=== PATIENT | male | born 1985 | race Two or more races ===

== ENCOUNTER 2025-01-15 10:24 | Emergency (ER) | payer MEDICAID, OTHER ==
[~2025-01-15] VITALS: Ht 188 cm; Wt 109.0 kg
[2025-01-15 10:30] VITALS: TEMP 97.9
[2025-01-15 12:00] VITALS: BP 128/86; PULSE 72; RESP 16; O2SAT 99
[2025-01-15] MEDS ORDERED: PRED-554 PO (12:56)
[2025-01-15] MEDS ORDERED: DIPH25CA85 PO (12:57)
== END 2025-01-15 13:29 | disposition home or self-care (01) ==
LOC: EMS 10:31
DX: T78.40XA Allergy, unspecified, initial encounter (principal); F17.210 Nicotine dependence, cigarettes, uncomplicated; Z79.52 Long term (current) use of systemic steroids; X58.XXXA Exposure to other specified factors, initial encounter
CPT/HCPCS: 99283; J7512

== ENCOUNTER 2025-04-29 15:23 | Inpatient (IN) | payer OTHER ==
[~2025-04-29] VITALS: Ht 175.3 cm; Wt 79.5 kg
[~2025-04-29 15:23] MED LIST: DIPH25CA85 PO; PRED-554 PO
[2025-04-29] MEDS ORDERED: MAGNESIUM HYDROXIDE SUSPENSION 30 ML UDCUP PO PRN (16:15)
[2025-04-29 16:25] LABS: PLATELET COUNT (AUTO) 316 K/uL (150-450); RED BLOOD CELL COUNT(AUTO) 5.15 MIL/uL (4.50-5.90); RED CELL DISTRIBUTION WIDTH 14.6 % (11.5-14.5); WHITE BLOOD COUNT (AUTO) 6.1 K/uL (4.5-11.0)
[2025-04-29 16:29] LABS: CALCIUM, TOTAL 8.9 mg/dL (8.8-10.5); CREATININE 0.63 mg/dL (0.60-1.30); GLOMERULAR FILTR. RATE CALC > 60 mL/min (>60); GLUCOSE,RANDOM 95 mg/dL (70-110); SODIUM SERUM 137 mmol/L (136-145); UREA NITROGEN, BLOOD 14 mg/dL (7-18)
[2025-04-29] MEDS: ONDANSETRON HCL 4 MG/2 ML VIAL IVP PRN (17:44)
[2025-04-29] MEDS: SODIUM CHLORIDE 0.9% 1,000 ML IV ONE (17:44)
[2025-04-29] MEDS: LORazepam 2 MG/ML VIAL IVP PRN (17:45)
[2025-04-29] MEDS: ACETAMINOPHEN 325 MG TABLET PO PRN (17:52)
[2025-04-29 20:30] VITALS: BP 128/88; PULSE 69; RESP 18; TEMP 97.9; O2SAT 97
[2025-04-30] MEDS: ZOLPIDEM TARTRATE 5 MG TABLET PO PRN (00:31)
[2025-04-30 04:31] VITALS: BP 123/77; PULSE 64; RESP 18; TEMP 98.3; O2SAT 98
[2025-04-30 05:50] VITALS: BP 138/77; PULSE 77; RESP 18; TEMP 97.9; O2SAT 98
[2025-04-30] MEDS: FAMOTIDINE 20 MG TABLET PO SCH (08:14)
[2025-04-30] MEDS ORDERED: LORazepam 2 MG/ML VIAL IVP PRN (08:15)
[2025-04-30 08:41] VITALS: BP 114/76; PULSE 71; RESP 18; TEMP 97.7; O2SAT 100
[2025-04-30] MEDS: HYDROCORTISONE 0.5% 30 GM CREAM TP SCH (10:41)
[2025-04-30] MEDS: CLOTRIMAZOLE 1% 15 GM CREAM TP SCH (10:41)
[2025-04-30] MEDS ORDERED: DEXTROSE 50%-WATER 25 GM/50 ML SYRINGE IVP PRN (13:45)
[2025-04-30] MEDS ORDERED: INSULIN LISPRO 100 UNITS/ML SQ PRN (13:45)
[2025-04-30 17:25] LABS: GLUCOMETER DEV NAME(LOC) 6N.1C; GLUCOSE,POINT OF CARE 93 MG/DL (70-110)
[2025-04-30 21:20] VITALS: BP 118/85; PULSE 70; RESP 18; TEMP 98.1; O2SAT 98
[2025-04-30 23:46] LABS: GLUCOMETER DEV NAME(LOC) 6N.1C; GLUCOSE,POINT OF CARE 137 MG/DL (70-110)
[2025-05-01 06:13] VITALS: BP 94/62; PULSE 70; RESP 18; TEMP 97.7; O2SAT 98
[2025-05-01 08:14] VITALS: BP 129/77; PULSE 66; RESP 18; TEMP 98.1; O2SAT 97
[2025-05-01 11:11] LABS: GLUCOMETER DEV NAME(LOC) 6N.1C; GLUCOSE,POINT OF CARE 94 MG/DL (70-110)
[2025-05-01 19:41] VITALS: BP 119/79; PULSE 80; RESP 18; TEMP 97.7; O2SAT 96
[2025-05-02 05:27] VITALS: BP 109/75; PULSE 65; RESP 18; TEMP 97.9; O2SAT 98
[2025-05-02] MEDS ORDERED: CLOT15CR29 TP (16:02)
[2025-05-02] MEDS ORDERED: FAMO20 PO (16:04)
[2025-05-02] MEDS ORDERED: HYDR30CR44 TP (16:05)
[2025-05-02] MEDS ORDERED: ACET-2247 PO (16:07)
[2025-05-02] MEDS ORDERED: MAGN-169 PO (16:08)
== END 2025-05-02 20:50 | DRG 897 ==
LOC: EMS 15:23 → EDH 16:09 → 6S 21:00
PROVIDERS: ADMIT Internal Medicine; ATTEND Internal Medicine
DX: F11.13 Opioid abuse with withdrawal (principal); B35.1 Tinea unguium; F15.10 Other stimulant abuse, uncomplicated; B35.3 Tinea pedis; F17.210 Nicotine dependence, cigarettes, uncomplicated; L30.9 Dermatitis, unspecified; Z71.51 Drug abuse counseling and surveillance of drug abuser
CPT/HCPCS: 80048; 82962; 85025; 96361; 96374; 99285; G0480; J2060; J2405; J7030; 36415-L1; 36415-TC